=== PATIENT | female | born 1940 | race Caucasian/White ===

== ENCOUNTER 2025-06-09 17:50 | Emergency (ER) | payer OTHER ==
[~2025-06-09] VITALS: Ht 165.1 cm; Wt 54.4 kg
[2025-06-09 18:38] LABS: BASO # 0.1 10*3/uL (0.0-0.1); BASO % 0.7 % (0.0-1.0); EOS # 0.1 10*3/uL (0.0-0.4); EOS % 1.0 % (1.0-4.0); MEAN CELL VOLUME 92.9 fl (81.0-99.0); MEAN CORPUSCULAR HGB 29.9 pg (27.0-31.0); MEAN PLATELET VOLUME 9.7 fl (9.6-12.3); MONO # 0.6 10*3/uL (0.1-1.0); MONO % 7.4 % (3.0-9.0); NEUT # 5.4 10*3/uL (2.3-7.9); NEUT % 71.0 % (47.0-73.0); NUCLEATED RED BLOOD CELL 0.0 % (0.0-0.0); NUCLEATED RED BLOOD CELL 0.0 10*3/uL (0.0-0.0); PLATELET COUNT AUTOMATED 187 10*3/uL (130-400); RED CELL DISTRI WIDTH 13.2 % (0-14.5)
[2025-06-09 19:10] LABS: BUN 24 mg/dl (9-23)
[2025-06-09 19:12] LABS: SGPT/ALT < 7 U/L (5-49)
[2025-06-09 20:05] LABS: BILIRUBIN Negative (Negative); BLOOD Negative (Negative); CLARITY Clear (Clear); COLOR Yellow (Yellow); KETONE Trace (Negative); LEUKO ESTERASE 1+ (Negative); NITRITE Negative (Negative); PH 6.5 (4.5-8.0); SPECIFIC GRAVITY 1.025 (1.001-1.030); UROBILINOGEN 1.0 E.U./dl (0.0-1.0)
[2025-06-09 20:26] LABS: BACTERIA 1+; MUCOUS 1+; WBC 16-20 wbc/hpf (0-5)
[2025-06-09] MEDS ORDERED: OMNICEF300 MG PO (21:00)
[2025-06-09] MEDS ORDERED: CEFDINIR 300 MG CAP PO ONE (21:00)
== END 2025-06-09 20:55 | disposition home or self-care (01) ==
LOC: ED 17:50
PROVIDERS: Emergency Medicine
DX: N39.0 Urinary tract infection, site not specified (principal); R51.9 Headache, unspecified; F03.90 Unspecified dementia, unspecified severity, without behavioral disturbance, psychotic disturbance, mood disturbance, and anxiety